=== PATIENT | male | born 1975 | race Caucasian/White ===

== ENCOUNTER 2016-11-18 20:30 | Emergency (ER) | payer MEDICARE ==
[~2016-11-18] VITALS: Ht 172.7 cm; Wt 64.5 kg
[~2016-11-18 20:30] MED LIST: CYCL-36 PO; MEDR4PAK3 PO; PERC5TAB12 PO
[2016-11-18 20:34] VITALS: BP 144/103; PULSE 72; RESP 20; TEMP 98.3
[2016-11-18] MEDS ORDERED: LIDOCAINE 1%/EPINEPHrine 1:100,000 SOLN 20 ML VIAL INFIL ONE (21:15)
[2016-11-18] MEDS ORDERED: LIDOCAINE HCL 1% 50 ML VIAL INFIL ONE (21:15)
[2016-11-18] MEDS ORDERED: BUPIVACAINE HCL PF 0.5% 10 ML VIAL INFIL ONE (21:15)
--- NOTE | 2016-11-18 21:36 | PD ---
HPI Chief Complaint: Laceration/Skin Injury Time Seen by Provider: 21:10 Travel History International Travel<30 days: No Contact w/Intl Traveler<30days: No Traveled to known affect area: No History of Present Illness HPI 41-year-old right handed male presents to the emergency room for evaluation of a laceration to the left hand. He was using a carpet knife to cut a hole in his kayak when the knife slipped and pierced his left thenar eminence. He states it went into his hand approximately 1 inch. States he had just changed the blade and it was a clean knife. Patient's denies loss of range of motion, paresthesias, or significant pain. He denies being on blood thinners. Last tetanus was less than 5 years ago. PFSH Past Medical History Diminished Hearing: No Immunizations Current: Yes Tetanus Vaccination: < 5 Years Influenza Vaccination: No ?: Not Past Surgical History Other Surgery: Yes (LAC REPAIR LEFT HAND) Social History Alcohol Use: No Tobacco Use: Yes ( 1PPD) Substance Use: No Allergies-Medications (Allergen,Severity, Reaction): Coded Allergies: No Known Allergies (Unverified , 06/07/15) Reported Meds & Prescriptions Reported Meds & Active Scripts Active Keflex (Cephalexin) 500 Mg Cap 500 Mg PO Q6H 7 Days Flexeril (Cyclobenzaprine HCl) 10 Mg Tab 10 Mg PO Q8HR Medrol Dosepak (Methylprednisolone) 4 Mg Domenico 4 Mg PO DIRECTED TAKE DIRECTED Percocet 5-325 mg (Oxycodone/Acetaminophen) Oxycodone 5/325 Acetaminophen Tab 1 Tab PO Q6H PRN Review of Systems Except as stated in HPI: all other systems reviewed are Neg Physical Exam Narrative GENERAL: Well-nourished, well-developed male in no acute distress. Afebrile. Ambulatory. SKIN: Focused skin assessment warm/dry. There is a 2 cm deep laceration to the thenar eminence of the left hand. Wound is copiously bleeding. HEAD: Normocephalic. EYES: No scleral icterus. No injection or drainage. NECK: Supple, trachea midline. No JVD or lymphadenopathy. CARDIOVASCULAR: Regular rate and rhythm without murmurs, gallops, or rubs. RESPIRATORY: Breath sounds equal bilaterally. No accessory muscle use. EXTREMITY: Left hand tender to palpation especially the thenar eminence. Full range of motion in all joints. No noticeable edema. Less than 2 second capillary refill distally. Data Data Last Documented VS Vital Signs Date Time Temp Pulse Resp B/P Pulse Ox O2 Delivery O2 Flow Rate FiO2 11/18/16 20:34 98.3 72 20 144/103 Orders Bupivacaine Pf 0.5% Inj (Marcaine Pf 0.5 (11/18/16 21:15) Lidocaine 1% Inj (50 Ml) (Xylocaine 1% I (11/18/16 21:15) Lidocai-Epi 1%-1:100,000 Inj (Xylocaine- (11/18/16 21:15) MDM Medical Decision Making Medical Screen Exam Complete: Yes Emergency Medical Condition: Yes Medical Record Reviewed: Yes Differential Diagnosis Laceration versus abrasion versus wound infection Narrative Course 41-year-old male presents to the emergency room for evaluation of laceration to the left thenar eminence. Patient stabbed himself with a carpet knife. He had just changed the plate. States it went into his skin approximately 1 inch. Tetanus is up-to-date. He is bleeding copiously upon exam there appears to be a superficial vein bleeding. Hemostasis achieved. Laceration was repaired, see procedure note for details. Given depth of wound and location on the hand, patient will be discharged with prophylactic antibiotics. He was told to follow up with the primary care physician or return for worsening symptoms such as signs of infection. Told to return in 10 days for suture removal. He understands and agrees to plan. Procedures Procedure Narrative LACERATION LOCATION: Left thenar eminence LENGTH: 2 cm NUMBER OF STITCHES/GABO: 3 simple interrupted REPAIR: The area of the laceration was prepped with Betadine and sterilely draped. The laceration was infiltrated with 1% lidocaine with epinephrine. The wound was copiously irrigated and explored without evidence of foreign body , tendon injury or neurovascular injury. The wound was closed using 4-0 Prolene. This was a single layer repair. A sterile dressing was applied. The patient was advised to keep the dressing clean and dry. Patient tolerated the procedure well. Diagnosis Primary Impression: Laceration of left hand Qualified Code: S61.412A - Laceration of left hand without foreign body, initial encounter Referrals: Primary Care Physician Patient Instructions: General Instructions, Laceration (ED) Additional Instructions: Rest and drink plenty of fluids. Keep wound clean and dry. Apply triple antibiotic ointment daily. Take Keflex as directed, until gone. Return to the emergency room in 10 days to have sutures removed. Follow up with a primary care physician. Return to emergency room for worsening symptoms, as discussed. Scripts Cephalexin (Keflex)500 Mg Tai557 Mg PO Q6H 7 Days Ref 0 Prov:Luke Mathis MD 11/18/16 Disposition: 01 DISCHARGE HOME Condition: Stable Jessie Guillaume November 18, 2016 21:36
[2016-11-18] MEDS ORDERED: CEPH-460 PO (21:37)
== END 2016-11-18 21:50 | disposition home or self-care (01) ==
LOC: PHEFT 20:30
DX: S61.412A Laceration without foreign body of left hand, initial encounter (principal); F17.210 Nicotine dependence, cigarettes, uncomplicated
CPT/HCPCS: 12001

== ENCOUNTER 2017-03-30 15:59 | Observation (INO) | payer MEDICARE ==
[~2017-03-30] VITALS: Ht 172.7 cm; Wt 65.0 kg
[2017-03-30] VITALS (7 sets, daily range): BP systolic 82–148; BP diastolic 72–91; PULSE 62–92; RESP 17–24; TEMP 97.4–97.8; O2SAT 98–100
[~2017-03-30 15:59] MED LIST changes: +CEPH-460 PO
[2017-03-30] MEDS ORDERED: SODIUM CHLOR 0.9% 1000 ML INJ 1,000 ML IV ONE (16:15)
[2017-03-30] MEDS ORDERED: SODIUM CHLORIDE 0.9% FLUSH 10 ML FLUSH IVF PRN (16:15)
--- NOTE | 2017-03-30 16:29 | RADRPT ---
EXAM DATE/TIME: 03/30/2017 16:20 [place] COMPARISON: No previous studies available for comparison. INDICATIONS : Altered mental status. Possible seizure. Evaluate for cerebrovascular accident. RADIATION DOSE: 10 CTDIvol (mGy) MEDICAL HISTORY : None SURGICAL HISTORY : None. ENCOUNTER: Initial ACUITY: 1 day PAIN SCALE: 0/10 LOCATION: cranial TECHNIQUE: Multiple contiguous axial images were obtained of the head. Using automated exposure control and adj ustment of the mA and/or kV according to patient size, radiation dose was kept as low as reasonably a chievable to obtain optimal diagnostic quality images. DICOM format image data is available electro nically for review and comparison. FINDINGS: CEREBRUM: The ventricles are normal for age. No evidence of midline shift, mass lesion, hemorrhage or acute in farction. No extra-axial fluid collections are seen. POSTERIOR FOSSA: The cerebellum and brainstem are intact. The 4th ventricle is midline. The cerebellopontine angle i s unremarkable. EXTRACRANIAL: The visualized portion of the orbits is intact. SKULL: The calvaria is intact. No evidence of skull fracture. CONCLUSION: Negative for acute process. Chris Storey MD FACR on March 30, 2017 at 16:27 Board Certified Radiologist. This report was verified electronically.
[2017-03-30 16:52] LABS: AUTOMATED NEUTROPHIL # 7.4 TH/MM3 (1.8-7.7); BASOPHIL # 0.1 TH/MM3 (0-0.2); EOSINOPHIL # 0.3 TH/MM3 (0-0.4); EOSINOPHIL % 2.6 % (0.0-4.0); LYMPH % 20.4 % (9.0-44.0); LYMPHOCYTE # 2.1 TH/MM3 (1.0-4.8); MEAN CELL VOLUME 85.7 FL (80.0-100.0); MEAN CORPUSCULAR HEMOGLOBIN 28.8 PG (27.0-34.0); MEAN CORPUSCULAR HGB CONC 33.5 % (32.0-36.0); MONO % 4.2 % (0.0-8.0); NEUT % 71.8 % (16.0-70.0); PLATELET COUNT 323 TH/MM3 (150-450); RED BLOOD COUNT 5.37 MIL/MM3 (4.50-5.90); RED CELL DISTRIBUTION WIDTH 12.6 % (11.6-17.2); WHITE BLOOD COUNT 10.3 TH/MM3 (4.0-11.0)
[2017-03-30 16:56] LABS: HEMO FLAGS DIFF FINAL
[2017-03-30 16:58] LABS: CHLORIDE 107 MEQ/L (98-107); SODIUM (NA) 139 MEQ/L (136-145)
[2017-03-30 17:01] LABS: ANION GAP 13 MEQ/L (5-15); BICARBONATE 18.6 MEQ/L (21.0-32.0)
[2017-03-30 17:02] LABS: BLOOD UREA NITROGEN 8 MG/DL (7-18)
[2017-03-30 17:05] LABS: ALT (GPT) 16 U/L (12-78); AST (GOT) 11 U/L (15-37); GLOMERULAR FILTRATION RATE 74 ML/MIN (>89)
[2017-03-30 17:06] LABS: TOTAL BILIRUBIN ADULT 1.2 MG/DL (0.2-1.0)
[2017-03-30 17:07] LABS: ALKALINE PHOSPHATASE 74 U/L (45-117)
[2017-03-30 17:09] LABS: CREATINE KINASE 71 U/L (39-308)
[2017-03-30 17:54] LABS: BLOOD, URINE NEG (NEG); GLUCOSE,URINE NEG (NEG); KETONE, URINE TRACE mg/dL (NEG); NITRITE,URINE NEG (NEG)
[2017-03-30 18:00] LABS: URINE COLOR YELLOW (YELLW/STRAW)
[2017-03-30 18:01] LABS: COMMENT (UR) CULTURE INDICATED; CULTURE IF INDICATED CULTURE INDICATED; MUCUS URINE FEW /lpf (OCC); RBC, URINE 0-3 /hpf (0-3); SQUAMOUS EPITHELIAL CELL URINE 0-5 /hpf (0-5)
[2017-03-30] MEDS ORDERED: levETIRAcetam 1000 MG INJ 100 ML IV ONE (18:15)
[2017-03-30] MEDS ORDERED: POTASSIUM CHLORIDE 20 MEQ CONTROLLED RELEASE TAB PO ONE (18:30)
[2017-03-30] MEDS ORDERED: LORazepam 2 MG/ML VIAL IV PUSH PRN (18:45)
--- NOTE | 2017-03-30 19:29 | PD ---
HPI Chief Complaint: Seizure Time Seen by Provider: 16:10 Travel History International Travel<30 days: No Contact w/Intl Traveler<30days: No Traveled to known affect area: No History of Present Illness HPI 41-year-old male was brought to the emergency room by EMS after having a witnessed tonic-clonic seizure by 2 bystanders. Patient does not have any history of seizures in the past. When he was brought in he was slightly combative and altered mental status, GCS of 14. Vital signs were stable. He was complaining of headache to me. He was following commands however. Patient was not a good historian at this point given his altered mental status. As per paramedics seizure last for less than 5 minutes. They did not give him any medications en route. [facility] Past Medical History Narrative Medical List of his past medical, surgical, social and family history was reviewed from the nursing note. Medical History: Denies Significant Hx Diminished Hearing: No Immunizations Current: Yes Past Surgical History Other Surgery: Yes (LAC REPAIR LEFT HAND) Social History Alcohol Use: No Tobacco Use: Yes ( 1PPD) Substance Use: Yes (MARIJUANA) Allergies-Medications (Allergen,Severity, Reaction): Coded Allergies: No Known Allergies (Unverified , 06/07/15) Comments No known drug allergies. Reported Meds & Prescriptions Reported Meds & Active Scripts Active No Active Prescriptions or Reported Medications Narrative Medication list of his home medications reviewed from the nursing note. Review of Systems Except as stated in HPI: all other systems reviewed are Neg Physical Exam Narrative GENERAL: Confused, postictal, moderate distress, anxious, combative SKIN: Warm and intense diaphoretic with his clothing and underneath sheet soaked with sweat HEAD: Atraumatic. Normocephalic. EYES: Pupils equal and round. No scleral icterus. No injection or drainage. ENT: No nasal bleeding or discharge. Mucous membranes pink and moist. NECK: Trachea midline. No JVD. CARDIOVASCULAR: Regular rate and rhythm. No murmur appreciated. RESPIRATORY: No accessory muscle use. Clear to auscultation. Breath sounds equal bilaterally. GASTROINTESTINAL: Abdomen soft, non-tender, nondistended. Hepatic and splenic margins not palpable. MUSCULOSKELETAL: No obvious deformities. No clubbing. No cyanosis. No edema. NEUROLOGICAL: Confused, GCS of 14. No obvious cranial nerve deficits. Motor grossly within normal limits. Normal speech. PSYCHIATRIC: Appropriate mood and affect; insight and judgment normal. Data Data Last Documented VS Vital Signs Date Time Temp Pulse Resp B/P (MAP) Pulse Ox O2 Delivery O2 Flow Rate FiO2 03/30/17 18:14 66 18 130/77 (94) 100 Room Air 03/30/17 17:11 97.8 Orders Orders Electrocardiogram (03/30/17 16:10) Complete Blood Count With Diff (03/30/17 16:10) Comprehensive Metabolic Panel (03/30/17 16:10) Creatine Kinase (Cpk) (03/30/17 16:10) Drug Screen, Random Urine (03/30/17 16:10) Troponin I (03/30/17 16:10) Urinalysis - C+S If Indicated (03/30/17 16:10) Ct Brain W/O Iv Contrast(Rout) (03/30/17 16:10) Ecg Monitoring (03/30/17 16:10) Iv Access Insert/Monitor (03/30/17 16:10) Oximetry (03/30/17 16:10) Sodium Chloride 0.9% Flush (Ns Flush) (03/30/17 16:15) Sodium Chlor 0.9% 1000 Ml Inj (Ns 1000 M (03/30/17 16:15) Urine Culture (03/30/17 17:50) Levetiracetam 1000 Mg Inj (Keppra 1000 M (03/30/17 18:15) Potassium Chloride (Kcl) (03/30/17 18:30) Vital Signs (Adult) Q4H (03/30/17 18:37) Activity Bed Rest (03/30/17 ) Neuro Checks Q4H (03/30/17 18:37) Diet Regular Basic (03/30/17 Dinner) Cellophane Tester / Telemetry NARCISO.Q8H (03/30/17 18:37) Basic Metabolic Panel (Bmp) (03/30/17 18:37) ^ Seizure Precautions (03/30/17 18:37) Lorazepam Inj (Ativan Inj) (03/30/17 18:45) Admit Order (Ed Use Only) (03/30/17 18:56) Labs Laboratory Tests Test 03/30/17 16:41 03/30/17 17:50 White Blood Count 10.3 TH/MM3 Red Blood Count 5.37 MIL/MM3 Hemoglobin 15.4 GM/DL Hematocrit 46.0 % Mean Corpuscular Volume 85.7 FL Mean Corpuscular Hemoglobin 28.8 PG Mean Corpuscular Hemoglobin Concent 33.5 % Red Cell Distribution Width 12.6 % Platelet Count 323 TH/MM3 Mean Platelet Volume 7.3 FL Neutrophils (%) (Auto) 71.8 % Lymphocytes (%) (Auto) 20.4 % Monocytes (%) (Auto) 4.2 % Eosinophils (%) (Auto) 2.6 % Basophils (%) (Auto) 1.0 % Neutrophils # (Auto) 7.4 TH/MM3 Lymphocytes # (Auto) 2.1 TH/MM3 Monocytes # (Auto) 0.4 TH/MM3 Eosinophils # (Auto) 0.3 TH/MM3 Basophils # (Auto) 0.1 TH/MM3 CBC Comment DIFF FINAL Differential Comment Blood Urea Nitrogen 8 MG/DL Creatinine 1.10 MG/DL Random Glucose 108 MG/DL Total Protein 6.9 GM/DL Albumin 3.9 GM/DL Calcium Level 8.9 MG/DL Alkaline Phosphatase 74 U/L Aspartate Amino Transf (AST/SGOT) 11 U/L Alanine Aminotransferase (ALT/SGPT) 16 U/L Total Bilirubin 1.2 MG/DL Sodium Level 139 MEQ/L Potassium Level 3.0 MEQ/L Chloride Level 107 MEQ/L Carbon Dioxide Level 18.6 MEQ/L Anion Gap 13 MEQ/L Estimat Glomerular Filtration Rate 74 ML/MIN Total Creatine Kinase 71 U/L Troponin I LESS THAN 0.02 NG/ML Urine Color YELLOW Urine Turbidity CLEAR Urine pH 7.0 Urine Specific [place] 1.018 Urine Protein 100 mg/dL Urine Glucose (UA) NEG mg/dL Urine Ketones TRACE mg/dL Urine Occult Blood NEG Urine Nitrite NEG Urine Bilirubin NEG Urine Leukocyte Esterase NEG Urine RBC 0-3 /hpf Urine WBC 6-8 /hpf Urine WBC Clumps FEW Urine Squamous Epithelial Cells 0-5 /hpf Urine Amorphous Sediment FEW Urine Mucus FEW /lpf Microscopic Urinalysis Comment CULTURE INDICATED Urine Opiates Screen NEG Urine Barbiturates Screen NEG Urine Amphetamines Screen NEG Urine Benzodiazepines Screen NEG Urine Cocaine Screen NEG Urine Cannabinoids Screen POS MDM Medical Decision Making Medical Screen Exam Complete: Yes Emergency Medical Condition: Yes Medical Record Reviewed: Yes Interpretation(s) Twelve-lead EKG was reviewed by me. Normal sinus rhythm, normal axis, peaked T waves and high voltage, ? Type 2 Brugada Syndrome. Heart rate of 75 bpm. Differential Diagnosis Cardiac arrhythmia, new onset seizure disorder, substance induced seizures Narrative Course 7:[address] scan was within normal limit. Blood test results suggestive of hypokalemia which was replaced by by mouth potassium. Rest of the test results are within normal limit. My concern was the sudden onset seizure in this patient who has never had seizures in the past. This was associated with intense diaphoresis and the fact that his younger brother recently of sudden cardiac . The EKG is highly concerning for type II Brugada syndrome. I have electronically sent the EKG to the reliability manager Dr. Peña. Patient definitely needs to be admitted. I discussed the case with Dr. Peña from cardiology who wanted the patient to be transferred to the [facility] for further workup. I discussed the case with the hospitalist Dr. Kaufman at [facility] who has accepted the case and wants the patient to be admitted to CICU. Critical Care Narrative Aggregate critical care time was 30 minutes. Time to perform other separately billable procedures was not included in the critical care time. My time did not include minutes spent treating any other patients simultaneously or on activities that did not directly contribute to the patient's treatment. The services I provided to this patient were to treat and/or prevent clinically significant deterioration that could result in: Altered mental status, syncopal seizure, Brugada syndrome I provided critical care services requiring my management, as noted below: Chart data review, documentation time, medication orders and management, vital sign assessments/reviewing monitor data, ordering and reviewing lab tests, ordering and interpreting/reviewing x-rays and diagnostic studies, care of the patient and discussion of the patient with the admitting physicians. Procedures EKG Prior to Arrival: No Physician Communication Physician Communication Dr. Peña Diagnosis Primary Impression: Syncopal seizure Additional Impression: Brugada syndrome Admitting Information Admitting Physician Requests: Admit Scripts No Active Prescriptions or Reported Tees Matt Samuels MD Mar 30, 2017 19:29
[2017-03-30 20:32] LABS: POTASSIUM 3.6 MEQ/L (3.5-5.1)
[2017-03-30 20:42] LABS: BICARBONATE 24.7 MEQ/L (21.0-32.0)
[2017-03-31] VITALS (17 sets, daily range): BP systolic 144–169; BP diastolic 87–98; PULSE 44–70; RESP 16–18; TEMP 97.6–98.1; O2SAT 98–99
--- NOTE | 2017-03-31 05:49 | HHI.HP ---
HPI Service [facility] Primary Care Physician No Primary Care Physician Admission Diagnosis new onset seizure, questionable cardiac arrhythmia Diagnoses: Travel History International Travel<30 Days: No Contact w/Intl Traveler <30 Da: No Traveled to Known Affected Are: No History of Present Illness 41-year-old male with no significant medical history presented to the ED after suffering a tonic-clonic seizure witnessed by 2 individuals. Patient states he was helping his friend remove an air conditioning unit from a truck and next thing he knows he woke up in the hospital. He denies any dizziness or chest pain prior to the seizure. He denies any history of seizures in the past. He does state he doesn't eat very well as he has a lack of appetite and nausea due to poor teeth. 3 days ago he had one tooth pulled and he is currently in the process of having them all pulled. He said this has been going on for the last 2 years so he eats only a little bit every couple of days. He denies any fever , chills, shortness of breath or dizziness. He does complain of throbbing headache currently in his frontal lobe, and is requesting Tylenol. He was sent from [facility] with concerns that his EKG may show Brugada syndrome. He did have a brother who 10 days ago after walking into the hospital and having cardiac arrest at the age of 32. Review of Systems Except as stated in HPI: all other systems reviewed are Neg Past Family Social History Past Medical History Patient denies any medical history Past Surgical History Left hand laceration repair Reported Medications Reported Meds & Active Scripts Active No Active Prescriptions or Reported Medications Allergies: Coded Allergies: No Known Allergies (Unverified , 06/07/15) Active Ordered Medications Current Medications Medications (Trade) Dose Ordered Sig/Melissa Route Start Time Stop Time Status Last Admin (NS Flush) 2 ml UNSCH PRN IVF 03/30/17 16:15 (Ativan Inj) 1 mg Q2H PRN IV PUSH 03/30/17 18:45 (Tylenol) 650 mg Q4H PRN PO 03/31/17 05:30 Family History Dad: of CVA Mom: Diabetes Social History Tobacco use: 1 PPD Alcohol use: Denies Illicit drug use: Marijuana to help with appetite Physical Exam Vital Signs Vital Signs Date Time Temp Pulse Resp B/P (MAP) Pulse Ox O2 Delivery O2 Flow Rate FiO2 03/31/17 03:46 60 03/31/17 01:40 58 03/31/17 01:12 97.9 56 16 149/93 (111) 98 03/30/17 23:00 98 03/30/17 22:52 97.8 66 18 117/86 (96) 98 Room Air 03/30/17 20:12 97.5 63 18 124/82 (96) 98 Room Air 03/30/17 19:17 97.8 65 18 82/ 100 03/30/17 18:14 66 18 130/77 (94) 100 Room Air 03/30/17 17:11 97.8 62 17 119/72 (88) 100 Room Air 03/30/17 16:41 20 100 Room Air 03/30/17 16:24 99 Room Air 03/30/17 16:17 97.4 92 24 148/91 (110) 99 Physical Exam GENERAL: This is a well-nourished, well-developed patient, in no apparent distress. SKIN: No rashes, ecchymoses or lesions. Cool and dry. HEAD: Atraumatic. Normocephalic. EYES: Pupils equal round and reactive. ENT: Nose without bleeding, purulent drainage or septal hematoma. Airway patent. NECK: Trachea midline. No JVD CARDIOVASCULAR: Regular rate and rhythm without murmurs, gallops, or rubs. RESPIRATORY: Clear to auscultation. Breath sounds equal bilaterally. No wheezes , rales, or rhonchi. GASTROINTESTINAL: Abdomen soft, non-tender, nondistended. No guarding. MUSCULOSKELETAL: Extremities without clubbing, cyanosis, or edema. No calf tenderness. NEUROLOGICAL: Awake and alert. Motor and sensory grossly within normal limits. Normal speech. Laboratory Laboratory Tests Test 03/30/17 16:41 03/30/17 17:50 03/30/17 20:11 White Blood Count 10.3 Red Blood Count 5.37 Hemoglobin 15.4 Hematocrit 46.0 Mean Corpuscular Volume 85.7 Mean Corpuscular Hemoglobin 28.8 Mean Corpuscular Hemoglobin Concent 33.5 Red Cell Distribution Width 12.6 Platelet Count 323 Mean Platelet Volume 7.3 Neutrophils (%) (Auto) 71.8 Lymphocytes (%) (Auto) 20.4 Monocytes (%) (Auto) 4.2 Eosinophils (%) (Auto) 2.6 Basophils (%) (Auto) 1.0 Neutrophils # (Auto) 7.4 Lymphocytes # (Auto) 2.1 Monocytes # (Auto) 0.4 Eosinophils # (Auto) 0.3 Basophils # (Auto) 0.1 CBC Comment DIFF FINAL Differential Comment Blood Urea Nitrogen 8 8 Creatinine 1.10 0.73 Random Glucose 108 98 Total Protein 6.9 Albumin 3.9 Calcium Level 8.9 7.7 Alkaline Phosphatase 74 Aspartate Amino Transf (AST/SGOT) 11 Alanine Aminotransferase (ALT/SGPT) 16 Total Bilirubin 1.2 Sodium Level 139 139 Potassium Level 3.0 3.6 Chloride Level 107 108 Carbon Dioxide Level 18.6 24.7 Anion Gap 13 6 Estimat Glomerular Filtration Rate 74 119 Total Creatine Kinase 71 Troponin I LESS THAN 0.02 Urine Color YELLOW Urine Turbidity CLEAR Urine pH 7.0 Urine Specific [place] 1.018 Urine Protein 100 Urine Glucose (UA) NEG Urine Ketones TRACE Urine Occult Blood NEG Urine Nitrite NEG Urine Bilirubin NEG Urine Leukocyte Esterase NEG Urine RBC 0-3 Urine WBC 6-8 Urine WBC Clumps FEW Urine Squamous Epithelial Cells 0-5 Urine Amorphous Sediment FEW Urine Mucus FEW Microscopic Urinalysis Comment CULTURE INDICATED Urine Opiates Screen NEG Urine Barbiturates Screen NEG Urine Amphetamines Screen NEG Urine Benzodiazepines Screen NEG Urine Cocaine Screen NEG Urine Cannabinoids Screen POS Date/Time Source Procedure Growth Status 03/30/17 17:50 Urine Clean Catch Urine Culture Pending Received Result Diagram: 03/30/17 1641 03/30/172010 Imaging Last Impressions Head CT 03/30/17 1610 Signed Impressions: Service Date/Time: Thursday, March 30, 2017 16:20 - CONCLUSION: Negative for acute process. Chris Storey MD FACR Caprini VTE Risk Assessment Caprini VTE Risk Assessment: No/Low Risk (score <= 1) Caprini Risk Assessment Model Point Value = 1 Point Value = 2 Point Value = 3 Point Value = 5 Age 41-60 Minor surgery BMI > 25 kg/m2 Swollen legs Varicose veins or History of unexplained or recurrent spontaneous Oral contraceptives or hormone replacement Sepsis (< 1 month) Serious lung disease, including pneumonia (< 1 month) Abnormal pulmonary function Acute myocardial infarction Congestive heart failure (< 1 month) History of inflammatory bowel disease Medical patient at bed rest Age 61-74 Arthroscopic surgery Major open surgery (> 45 min) Laparoscopic surgery (> 45 min) Malignancy Confined to bed (> 72 hours) Immobilizing plaster cast Central venous access Age >= 75 History of VTE Family history of VTE Factor V Leiden Prothrombin [id number] Lupus anticoagulant Anticardiolipin antibodies Elevated serum homocysteine Heparin-induced thrombocytopenia Other congenital or acquired thrombophilia Stroke (< 1 month) Elective arthroplasty Hip, pelvis, or leg fracture Acute spinal cord injury (< 1 month) Prophylaxis Regimen Total Risk Factor Score Risk Level Prophylaxis Regimen 0-1 Low Early ambulation 2 Moderate Order ONE of the following: *Sequential Compression Device (SCD) *Heparin 5000 units SQ BID 3-4 Higher Order ONE of the following medications: *Heparin 5000 units SQ TID *Enoxaparin/Lovenox 40 mg SQ daily (WT < 150 kg, CrCl > 30 mL/min) *Enoxaparin/Lovenox 30 mg SQ daily (WT < 150 kg, CrCl > 10-29 mL/min) *Enoxaparin/Lovenox 30 mg SQ BID (WT < 150 kg, CrCl > 30 mL/min) AND/OR *Sequential Compression Device (SCD) 5 or more Highest Order ONE of the following medications: *Heparin 5000 units SQ TID (Preferred with Epidurals) *Enoxaparin/Lovenox 40 mg SQ daily (WT < 150 kg, CrCl > 30 mL/min) *Enoxaparin/Lovenox 30 mg SQ daily (WT < 150 kg, CrCl > 10-29 mL/min) *Enoxaparin/Lovenox 30 mg SQ BID (WT < 150 kg, CrCl > 30 mL/min) AND *Sequential Compression Device (SCD) Assessment and Plan Problem List: (1) Syncopal seizure ICD Code: R55 - Syncope and collapse; R56.9 - Unspecified convulsions Status: Acute (2) Hypokalemia ICD Code: E87.6 - Hypokalemia (3) Brugada syndrome ICD Code: I49.8 - Other specified cardiac arrhythmias; R56.9 - Unspecified convulsions Status: Acute Assessment and Plan 41-year-old male with no significant medical history presented to the ED after suffering a tonic-clonic seizure witnessed by 2 individuals. Syncopal seizure, witnessed tonic-clonic Head CT reviewed and was unremarkable -Consult neurology -EEG ordered -Neuro checks -Seizure precautions -Ativan when necessary for seizures -Patient was loaded with IV Keppra in the ED Hypokalemia, potassium 3.0, resolved to 3.6 -Supplementation ordered, trend potassium and replace as needed Brugada syndrome EKG reviewed and shows sinus rhythm, with questionable Brugada in lead V3 -Consult cardiology, Dr. Peña discussed case with the ED physician -2-D echo -EKG in a.m. ordered -Monitor telemetry DVT prophylaxis: SCDs Discussed Condition With Patient and Ivelisse Collins Mar 31, 2017 05:49
--- NOTE | 2017-03-31 06:07 | EKG ---
Date Performed: 03/30/2017 Time Performed: 16:35:39 PTAGE: 41 years EKG: Sinus rhythm NORMAL ECG NO PREVIOUS TRACING DOCTOR: Michael Blanchard Interpretating Date/Time 03/31/2017 06:05:05
--- NOTE | 2017-03-31 08:20 | PD.CONS ---
HPI Consult Requested By Reason for Consult Syncope Primary Care Physician No Primary Care Physician History of Present Illness The patient has no definite cardiac history. He does not eat well, sometimes going for 2-3 days without eating because of pain in his gums and teeth. He does drink fluids although states sometimes less than he should. 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 This was the second for the day. He had not eaten in 2 days. He also has been not sleeping well. Apparently the patient had 2 witnessed seizures. He noted no cardiac symptoms before or afterwards but did feel he was confused afterwards. Telemetry has shown sinus bradycardia but no arrhythmias. EKG showed sinus bradycardia and is probably normal. The emergency room physician was concerned that it might show Brugada but I am not convinced of this as this type of ECG is often seen in a relatively young, thin male. Again, the patient has no cardiac symptoms or history. He has no hypertension, diabetes or hyperlipidemia. Review of Systems Respiratory: DENIES: Cough, Snoring, Wheezing Cardiovascular: COMPLAINS OF: Syncope Neurologic: DENIES: Tingling or numbness Past Family Social History Allergies: Coded Allergies: No Known Allergies (Unverified , 06/07/15) Past Medical History The patient is on Medicare covers apparently 15 years ago he was diagnosed as schizophrenic and bipolar in [place]. He states this was a wrong diagnosis and all his medications were stopped. He has no psychiatric symptoms that we know of. Past Surgical History Laceration of hand on right side Reported Medications Reported Meds & Active Scripts Active No Active Prescriptions or Reported Medications Active Ordered Medications Current Medications Medications (Trade) Dose Ordered Sig/Melissa Route Start Time Stop Time Status Last Admin (NS Flush) 2 ml UNSCH PRN IVF 03/30/17 16:15 (Ativan Inj) 1 mg Q2H PRN IV PUSH 03/30/17 18:45 (Tylenol) 650 mg Q4H PRN PO 03/31/17 05:30 Family History Apparently his 32-year-old brother suddenly 10 days ago and autopsy is pending Social History The patient is single but has a girlfriend. He smokes one pack per day but does not drink. He does use marijuana because of his poor appetite. He has chronic pain from his gums and teeth. Physical Exam Vital Signs Vital Signs Date Time Temp Pulse Resp B/P (MAP) Pulse Ox O2 Delivery O2 Flow Rate FiO2 03/31/17 07:01 67 03/31/17 03:46 60 03/31/17 01:40 58 03/31/17 01:12 97.9 56 16 149/93 (111) 98 03/30/17 23:00 98 03/30/17 22:52 97.8 66 18 117/86 (96) 98 Room Air 03/30/17 20:12 97.5 63 18 124/82 (96) 98 Room Air 03/30/17 19:17 97.8 65 18 82/ 100 03/30/17 18:14 66 18 130/77 (94) 100 Room Air 03/30/17 17:11 97.8 62 17 119/72 (88) 100 Room Air 03/30/17 16:41 20 100 Room Air 03/30/17 16:24 99 Room Air 03/30/17 16:17 97.4 92 24 148/91 (110) 99 Physical Exam CONSTITUTIONAL: A thin, well-developed, well-nourished patient in no apparent distress. EYES: Conjunctiva normal. Sclera nonicteric. Eyelids normal. No xanthelasma. HEENT: Oral mucosa normal without pallor or cyanosis. NECK: JVD less than or equal to 5 cm of water. RESPIRATORY: Breathing is unlabored without accessory muscle use. Normal breath sounds. No wheezes, rales or rubs present. CARDIOVASCULAR: Normal point of maximal impulse. No cardiac thrill present. Regular rate and rhythm. No murmurs, gallops, rubs or clicks present. PULSES: Carotid arteries: Normal pulses bilaterally without bruits. Palmar arteries: Radial pulses 2+ bilaterally Abdominal aorta: Aortic pulses normal without bruits or enlargement. Femoral arteries: 2+ bilaterally. No bruits present. Pedal pulses: 2+ bilaterally PERIPHERAL CIRCULATION: No cyanosis, clubbing, edema or varicosities present. GASTROINTESTINAL: Normal bowel sounds. Nontender without rigidity or guarding. No masses present. No hepatomegaly. Liver is nontender to palpation and spleen is nonpalpable. Digital rectal exam-not indicated for cardiovascular exam. MUSCULOSKELETAL: No kyphosis or scoliosis present. The patient is not ambulated. Able to undergo rehabilitation. SKIN: Skin turgor is normal. No rashes. NEUROLOGIC: Grossly oriented to person, place and time. Normal mood and appropriate affect. Laboratory Laboratory Tests Test 03/30/17 16:41 03/30/17 17:50 03/30/17 20:11 White Blood Count 10.3 Red Blood Count 5.37 Hemoglobin 15.4 Hematocrit 46.0 Mean Corpuscular Volume 85.7 Mean Corpuscular Hemoglobin 28.8 Mean Corpuscular Hemoglobin Concent 33.5 Red Cell Distribution Width 12.6 Platelet Count 323 Mean Platelet Volume 7.3 Neutrophils (%) (Auto) 71.8 Lymphocytes (%) (Auto) 20.4 Monocytes (%) (Auto) 4.2 Eosinophils (%) (Auto) 2.6 Basophils (%) (Auto) 1.0 Neutrophils # (Auto) 7.4 Lymphocytes # (Auto) 2.1 Monocytes # (Auto) 0.4 Eosinophils # (Auto) 0.3 Basophils # (Auto) 0.1 CBC Comment DIFF FINAL Differential Comment Blood Urea Nitrogen 8 8 Creatinine 1.10 0.73 Random Glucose 108 98 Total Protein 6.9 Albumin 3.9 Calcium Level 8.9 7.7 Alkaline Phosphatase 74 Aspartate Amino Transf (AST/SGOT) 11 Alanine Aminotransferase (ALT/SGPT) 16 Total Bilirubin 1.2 Sodium Level 139 139 Potassium Level 3.0 3.6 Chloride Level 107 108 Carbon Dioxide Level 18.6 24.7 Anion Gap 13 6 Estimat Glomerular Filtration Rate 74 119 Total Creatine Kinase 71 Troponin I LESS THAN 0.02 Urine Color YELLOW Urine Turbidity CLEAR Urine pH 7.0 Urine Specific [place] 1.018 Urine Protein 100 Urine Glucose (UA) NEG Urine Ketones TRACE Urine Occult Blood NEG Urine Nitrite NEG Urine Bilirubin NEG Urine Leukocyte Esterase NEG Urine RBC 0-3 Urine WBC 6-8 Urine WBC Clumps FEW Urine Squamous Epithelial Cells 0-5 Urine Amorphous Sediment FEW Urine Mucus FEW Microscopic Urinalysis Comment CULTURE INDICATED Urine Opiates Screen NEG Urine Barbiturates Screen NEG Urine Amphetamines Screen NEG Urine Benzodiazepines Screen NEG Urine Cocaine Screen NEG Urine Cannabinoids Screen POS Date/Time Source Procedure Growth Status 03/30/17 17:50 Urine Clean Catch Urine Culture Pending Received Result Diagram: 03/30/17 1641 03/30/172010 Imaging Last [address] 03/30/17 1610 Signed Impressions: Service Date/Time: Thursday, March 30, 2017 16:20 - CONCLUSION: Negative for acute process. Chris Storey MD FACR Assessment and Plan Assessment and Plan Problems: Syncope with seizure-I am not convinced this is cardiac. He does not eat or drink well and was working in the heat. This could've been a combination of prerenal with a vasovagal and heat. This might explain his low potassium. I am not convinced his EKG is truly abnormal. Hypokalemia Tobacco abuse Family history with sudden in brother Past psychiatric history Bradycardia--noncontributory Recommendations: Monitor on telemetry Neurology consult Echocardiogram to assess ventricular and valvular function Tobacco abstinence which was discussed The patient does need some evaluation of his dental situation as this is clearly affecting his ability to eat and drink No driving or heavy exertion given his syncope. All questions were answered. Michael Blanchard MD Mar 31, 2017 08:20
[2017-03-31] MEDS: ACETAMINOPHEN 325 MG TAB PO PRN ×2 (10:48→15:00)
[2017-03-31] MEDS ORDERED: SODIUM CHLOR 0.9% 1000 ML INJ 1,000 ML IV SCH (11:00)
--- NOTE | 2017-03-31 11:20 | EKG ---
Date Performed: 03/31/2017 Time Performed: 06:56:04 PTAGE: 41 years EKG: Sinus bradycardia Normal ECG except for rate PREVIOUS TRACING : 03/30/2017 16.35 No significant change from prior electrocardiogram. DOCTOR: Michael Blanchard Interpretating Date/Time 03/31/2017 11:19:42
--- NOTE | 2017-03-31 13:59 | RADRPT ---
EXAM DATE/TIME: 03/31/2017 13:31 [facility] COMPARISON: No previous studies available for comparison. INDICATIONS : Seizures. Cephalgia. MEDICAL HISTORY : None. SURGICAL HISTORY : None. ENCOUNTER: Initial ACUITY: 1 day PAIN SCORE: 4/10 LOCATION: cranial Please note a normal MRA of the brain does not entirely exclude the possibility of a small aneurysm, nor the possibility of distal intracranial vessel disease. TECHNIQUE: 3D time of flight MRA was performed. Source images, multiplanar STS MIP, and 3D volume MIP reconstru ctions were reviewed. FINDINGS: The internal carotid arteries are patent bilaterally. The internal carotid arteries are seen to alexis lly bifurcate into the anterior and middle cerebral arteries. The basilar artery is primarily perform ed as a continuation of the left vertebral artery. A small contribution is made by the right vertebra l artery. The right vertebral artery primarily ends as the posterior inferior cerebellar artery. The basilar artery is seen to normally bifurcate into the posterior cerebral arteries. No aneurysm is see n. The distal flow appear symmetric. CONCLUSION: Normal MRA. Sathya Carey MD on March 31, 2017 at 13:54 Board Certified Radiologist. This report was verified electronically.
--- NOTE | 2017-03-31 14:12 | MB ---
cc: NALLELY HELM DATE OF CONSULTATION: 03/31/2017 REASON FOR CONSULTATION: 41-year-old man with a history of hypertension, otherwise has been very healthy. He had a generalized tonic-clonic seizure yesterday. 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 No incontinence or tongue biting. He has never had a seizure before. No odd smells, tastes or daron vu. He has never woken up wet the bed, or bit his tongue. REVIEW OF SYSTEMS He denies any diabetes, hypercholesterolemia, IA, stent angioplasty A fib, Coumadin, coronary artery bypass graft, renal, hepatic or pulmonary disease, thyroid disease, lupus, ulcer cancer, seizure, stroke. No history meningitis otherwise head trauma. No chest pain or palpitations. PAST MEDICAL HISTORY: He has a history of migraine headaches about once a month bifrontally and when he woke up he did have a headache but not before he had the seizure, he says that it feels like a his typical migraine still as of this morning. No fevers have been noted recently. He has a history of poor dentition. SOCIAL HISTORY Nonsmoker, not a drinker. 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 He has occasional marijuana but otherwise no drugs. FAMILY HISTORY: Family history is negative cancer seizure. Positive stroke in father. Positive for sudden and myocardial infarction in his brother recently. MEDICATIONS None. ALLERGIES NO KNOWN DRUG ALLERGIES. PHYSICAL EXAMINATION: VITAL SIGNS: afebrile 59, 18, 144/90. He has been in sinus rhythm in the hospital. Heart as low as heart rate 56. NECK: There are no carotid bruits. HEART: Regular rhythm, I did not detect a murmur. HEAD, EYES, EARS, NOSE, AND THROAT: Pupils are equal, visual valderrama full. Extraocular movements intact without nystagmus. Face symmetric normal station. Tongue was midline. There is no drift. EXTREMITIES: He had normal strength in upper lower extremities bilaterally. NEUROLOGIC: DTRs are 2+ mets throughout. Toes downgoing bilaterally. There is no ankle clonus. Pinprick is intact throughout. Vibratory sense is intact in ataxic on [id number]. He had normal strength in upper lower extremities bilaterally. No apparent distress. He is awake and alert. Neck is supple. LABORATORY DATA CT scan of the brain is normal. LABORATORY FINDINGS: Other labs, CBC is normal. Urine drug screen positive for marijuana only. UA 68 white cells a few white blood cell clumps. Basic metabolic profile normal, as were LFTs troponin albumin. Urine cultures pending. IMPRESSION New-onset seizure. We will check an MRI of the brain with the history of his tooth being pulled, we will check an MRA and MR venogram, we will check a sed rate on him. Electroencephalogram preliminary is negative at this point. He has a history of migraines in addition. We can try him on an Imitrex later today if his MRI looks negative. Overall I thought he looked well neurologically. I did notify him about not to drive, which he does not do currently anyhow and not to swim alone or take bath alone for fear of drowning if he were to have another seizure. I have offered him a seizure med for the next 2 years but, considering he is not driving he wants to hold off on that. The med team will follow up his urine culture. MD GURINDER Burk/jake /10:27 AM /1:57 PM
--- NOTE | 2017-03-31 14:14 | RADRPT ---
EXAM DATE/TIME: 03/31/2017 13:31 [facility] COMPARISON: No previous studies available for comparison. INDICATIONS : Cephalgia. Seizure CONTRAST: 20 cc Omniscan (gadodiamide) IV MEDICAL HISTORY : None. SURGICAL HISTORY : None. ENCOUNTER: Initial ACUITY: 1 day PAIN SCORE: 5/10 LOCATION: cranial TECHNIQUE: Multiplanar, multisequence MRI of the brain was performed both prior to and following the administrat ion of paramagnetic contrast. FINDINGS: CEREBRUM: The ventricles are normal for age. No evidence of midline shift, mass lesion, hemorrhage or acute in farction. No extraaxial fluid collections are seen. There is an empty sella configuration. WHITE MATTER: There are 2 focal small areas of signal body within the white matter seen in the right frontal lobe a nd the right parietal occipital region. POSTERIOR FOSSA: The cerebellum and brainstem are intact. The 4th ventricle is midline. The cerebellopontine angle is unremarkable. The cerebellar tonsils are normal in position. DIFFUSION IMAGING: No focal areas of restricted diffusion are seen. No evidence of acute infarction. EXTRACRANIAL: The visualized portions of the orbits and paranasal sinuses are unremarkable. POST-CONTRAST: No abnormal areas of parenchymal or dural enhancement. No evidence of blood-brain barrier breakdown. CONCLUSION: 1. No acute intracranial abnormality is seen. 2. 2 small focal areas of signal abnormality within the right cerebral white matter. This can be with in normal limits for the patient's age. These represents small focal areas of demyelination. They are nonspecific. Sathya Carey MD on March 31, 2017 at 14:10 Board Certified Radiologist. This report was verified electronically.
--- NOTE | 2017-03-31 16:01 | RADRPT ---
EXAM DATE/TIME: 03/31/2017 13:31 [facility] COMPARISON: No previous studies available for comparison. INDICATIONS : Cephalgia. Seizure. CONTRAST: 20 cc Omniscan (gadodiamide) IV MEDICAL HISTORY : None. SURGICAL HISTORY : None. ENCOUNTER: Initial ACUITY: 1 day PAIN SCORE: 5/10 LOCATION: cranial Please note a normal MRA of the brain does not entirely exclude the possibility of a small aneurysm, nor the possibility of distal intracranial vessel disease. TECHNIQUE: MR venography of the brain was performed with multiplanar and 3D reconstructions. FINDINGS: Dural sinuses and draining veins of the brain have normal morphology and filling. No evidence of thro mbosis. CONCLUSION: Normal MRV of the brain. Sathya Jackson MD on March 31, 2017 at 15:59 Board Certified Radiologist. This report was verified electronically.
[2017-03-31 17:56] LABS: FREE T4 1.04 NG/DL (0.76-1.46)
--- NOTE | 2017-03-31 23:00 | MG ---
cc: NALLELY HELM Lab No: [id number] Date: 03/31/17 Age: 41 Sex: M Race: A 41-year-old man, seizure. DESCRIPTION A 9 Hz, 60 microvolt symmetric posterior rhythm is noted. The recording overall is synchronous and symmetric. Photic stimulation is performed without significant posterior driving. No hemisphere asymmetries are noted. No epileptiform or seizure activity is seen. Hyperventilation was performed without change in the background. IMPRESSION Normal EEG. No evidence for a focal or diffuse abnormality. MD GURINDER Burk/DON /9:09 PM /10:48 PM
[2017-04-02 14:28] LABS: ANA SCREEN NEG (NEG)
== END 2017-03-31 19:55 | disposition left against medical advice (07) ==
LOC: PHED 15:59 → PHEDA 18:57 → HCIS 03-31 01:09
PROVIDERS: ADMIT Hospitalist; ATTEND Hospitalist
DX: G40.89 Other seizures (principal); R55 Syncope and collapse; I49.8 Other specified cardiac arrhythmias; E87.6 Hypokalemia; F17.210 Nicotine dependence, cigarettes, uncomplicated; F12.90 Cannabis use, unspecified, uncomplicated; F20.9 Schizophrenia, unspecified; F31.9 Bipolar disorder, unspecified
CPT/HCPCS: 70450; 70544; 70545; 70553; 80053; 80307; 81001; 82550; 82607; 84425; 84439; 84443; 84484; 85025; 85652; 86038; 86592; 87086; 93005; 95819; 96361; 96365; 99291; G0378; J1953; J7030; 80048